=== PATIENT | male | born 1960 ===

== ENCOUNTER 2017-04-06 20:28 | Emergency (ER) | payer BC ==
[2017-04-06 20:46] VITALS: BP 126/79
[2017-04-06] MEDS ORDERED: Lidocaine 1% MPF* 2 ML VIAL INJ ONE (21:20)
--- NOTE | 2017-04-06 21:45 | RAD ---
INDICATION: Head injury. COMPARISON: There are no prior studies available for comparison. TECHNIQUE: Contiguous axial sections of the brain were obtained from the skull base to the vertex without contrast. FINDINGS: The ventricles, cisterns and sulci are within normal limits. No significant focal abnormality or mass effect is seen. There is no evidence for hemorrhage. No significant focal osseous abnormality is seen. The visualized portion of the paranasal sinuses and mastoid air cells appear clear. IMPRESSION: NO EVIDENCE FOR ACUTE INTRACRANIAL ABNORMALITY.
--- NOTE | 2017-04-06 21:47 | RAD ---
INDICATION: Facial trauma. COMPARISON: There are no prior studies available for comparison. TECHNIQUE: Contiguous axial sections of the axial images of the facial bones were obtained and reconstructed in the coronal and sagittal planes. FINDINGS: Soft tissue swelling is noted anterior to the mandibular symphysis. The crespo of the orbits and maxillary sinuses appear intact. The zygomatic arches appear intact. There is no evidence for a fracture of the mandible. The nasal bones appear intact. There is moderate deviation of the nasal septum toward the right side. The pterygoid plates appear intact. The paranasal sinuses appear clear. IMPRESSION: NO EVIDENCE OF FRACTURE.
[2017-04-06] MEDS ORDERED: Tetan/Diph/Pertus SYR(Tdap)* 0.5 ML SYR(BOOSTRIX) use SYR IM ONE (21:59)
--- NOTE | 2017-04-06 22:09 | UC ---
Luis Higuera SooYoung, scribed for Germán Tovar MD on 04/06/17 at 2104 . Truncal Trauma HPI - HPI Summary HPI Summary: A 56 y/o M [place] [facility] [place] a near-syncopal episode [employer]. Pt took a new medication, clonazepam, got drowsy and laid down on the couch. When he got up, he went to the bathroom, felt dizzy, and hit the sink with his body and face. Associated sx: mild dizziness resolved, abrasion to R-side abd. Denies BM changes, facial pain, CP, SOB. Denies LOC but is not entirely sure. - History Of Current Complaint Chief Complaint: UCTrauma Stated Complaint: SOFT TISSUE Time Seen by Provider: 04/06/17 21:00 Hx Obtained From: Patient Onset/Duration: Sudden Onset, Still Present Onset Of Pain: Immediate Severity Initially: Moderate Severity Currently: Mild Pain Intensity: 1 Pain Scale Used: 0-10 Numeric Mechanism Of Injury: Fall From A Standing Position - Allergies/Home Medications Allergies/Adverse Reactions: Allergies Allergy/AdvReac Type Severity Reaction Status Date / Time No Known Allergies Allergy Verified 04/06/17 20:46 Home Medications: Home Medications Escitalopram (NF) [Lexapro 5 mg (NF)] 04/06/17 [History] clonazePAM TAB(*) [Klonopin TAB(*)] PRN 04/06/17 [History] PMH/Surg Hx/FS Hx/Imm Hx Previously Healthy: Yes - Denies PMHx. Neg COPD, CHF. - Surgical History Surgical History: None - Family History Known Family History: Positive: Cardiac Disease - father Negative: Hypertension, Diabetes - Social History Occupation: Employed Full-time Lives: With Family Alcohol Use: None Substance Use Type: None Smoking Status (MU): Never Smoked Tobacco Review of Systems Constitutional: Negative Skin: Other - pos: lac to lip; abrasion to abd Eyes: Negative ENT: Negative Respiratory: Negative Cardiovascular: Negative Gastrointestinal: Negative Genitourinary: Negative Motor: Negative Neurovascular: Negative Musculoskeletal: Other: - pos: rib pain Neurological: Other - pos: dizziness, resolved Psychological: Negative All Other Systems Reviewed And Are Negative: Yes Physical Exam Triage Information Reviewed: Yes Appearance: Well-Appearing, No Pain Distress Vital Signs: Initial Vital Signs Temp 97.9 F 04/06/17 20:42 Pulse 86 04/06/17 20:42 Resp 16 04/06/17 20:42 BP 126/79 04/06/17 20:42 Pulse Ox 98 04/06/17 20:42 Vital Signs Reviewed: Yes Eyes: Positive: Other: - EOMI/LUCI ENT: Positive: Hearing grossly normal Neck: Positive: Supple, Nontender Respiratory: Positive: Chest non-tender, Lungs clear, Normal breath sounds Cardiovascular: Positive: RRR Abdomen Description: Positive: Soft, Other: - mildly tender to palpation Musculoskeletal: Positive: Strength Intact, ROM Intact Neurological Exam: Normal - motor/sensory intact Neurological: Positive: Alert - A&Ox3 Psychological: Positive: Age Appropriate Behavior Skin: Positive: Other - Full thickness lac of lower lip on L side, 1 cm does not cross the nithya border. Abd: R abd abrasion and ecchymosis, no skin break Warm, dry, color reflects adequate perfusion. Procedures - Laceration/Wound Repair 1 Location: mouth - L lower lip Description: Linear Anesthesia: Local, 1.0%, Lido Length, Depth and Shape: 1cm in lip, missing piece of skin at remaining border Laceration/Wound Explored: clean Closure: Single Layer Debridement: minimal Suture Type: Prolene - 6-0 Number of Sutures: 2 Diagnostics - Laboratory Diagnostic Studies Completed/Ordered: MAXILLOFACIAL CT, read by radiologist, IMPRESSION: No evidence of fx. BRAIN CT, read by radiologist, IMPRESSION: No evidence for acute intracranial abnormality. Truncal Trauma Course/Dx - Course Course Of Treatment: Pt medications reviewed this visit. Pre-Hypertensive BP reading (126/79); patient referred to PCP for follow-up. PATIENT STARTED KLONAZEPAM TODAY. HE GOT UP FROM SITTING AND FELT LIGHT HEADED. HE DENIED ANY CHEST PAIN OR PALPITATIONS. HE CONTINUED TO WALK INTO THE BATHROOM WHERE HE REMEMBERS FALLING BUT, NOT STRIKING HIS FACE. BY HX, THE SYNCOPE WAS BRIEF. WE DISCUSSED FURTHER EVALUATION FOR SYNCOPE IN THE EMERGENCY DEPARTMENT; THE PATIENT DECLINED. - Differential Dx/Diagnosis Provider Diagnoses: SYNCOPAL EPISODE, LIP LACERATION, HEAD INJURY Discharge - Discharge Plan Condition: Stable Disposition: HOME Patient Education Materials: Care For Your Stitches (ED), Facial Laceration (ED ), Head Injury (ED), Syncope (ED) Referrals: Helio Camara MD [Primary Care Provider] - (Follow up in 1 day to 4 weeks for further blood pressure evaluation. ) Additional Instructions: Your blood pressure reading today was 126/79, which is PRE-HYPERTENSIVE. Follow- up with your primary care provider within 4 weeks for blood pressure readings and further evaluation. FOLLOW UP WITH YOUR DOCTOR. SUTURES OUT IN 5 DAYS. YOU HAD TOUR TDap IMMUNIZATION IN THE CLINIC TODAY. GO TO THE EMERGENCY DEPARTMENT FOR ANY WORSENING OF YOUR CONDITION; PASSING OUT , WEAKNESS, NUMBNESS, YOU FEEL ILL, SIGNS OF INFECTION OR QUESTIONS OR CONCERNS. The documentation as recorded by the Luis casarez SooYoung accurately reflects the service I personally performed and the decisions made by me, Germán Tovar MD.
== END 2017-04-06 22:14 | disposition home or self-care (01) ==
LOC: UCEAST 20:28
DX: R55 Syncope and collapse (principal); S01.511A Laceration without foreign body of lip, initial encounter; S09.90XA Unspecified injury of head, initial encounter; S30.811A Abrasion of abdominal wall, initial encounter; W18.09XA Striking against other object with subsequent fall, initial encounter; Y93.89 Activity, other specified; Y92.002 Bathroom of unspecified non-institutional (private) residence as the place of occurrence of the external cause; Z23 Encounter for immunization
CPT/HCPCS: 12011; 70450; 70486; 90471; 90715; 99211; G0463

== ENCOUNTER 2017-04-12 11:38 | Emergency (ER) | payer BC ==
[2017-04-12 11:55] VITALS: BP 109/69
--- NOTE | 2017-04-12 12:02 | UC ---
HPI Wound/Suture Re-check - HPI Summary HPI Summary: here for suture removal on left side of lower lip--- - History Of Current Complaint Chief Complaint: UCSkin Stated Complaint: SUTURE REMOVAL Time Seen by Provider: 04/12/17 11:51 Hx Obtained From: Patient Onset/Duration: Sudden Onset, Still Present Surgical Site: left lower lip Severity: Mild Pain Intensity: 0 Pain Scale Used: 0-10 Numeric - Allergies/Home Medications Allergies/Adverse Reactions: Allergies Allergy/AdvReac Type Severity Reaction Status Date / Time No Known Allergies Allergy Verified 04/06/17 20:46 PMH/Surg Hx/FS Hx/Imm Hx Previously Healthy: No Psychological History: Anxiety - Surgical History Surgical History: None - Family History Known Family History: Positive: Cardiac Disease - father Negative: Hypertension, Diabetes - Social History Occupation: Employed Full-time Lives: With Family Alcohol Use: None Substance Use Type: None Smoking Status (MU): Never Smoked Tobacco Review of Systems Constitutional: Negative Skin: Other - healing wound left side of lower lip Eyes: Negative ENT: Negative Respiratory: Negative Cardiovascular: Negative Gastrointestinal: Negative Genitourinary: Negative Motor: Negative Neurovascular: Negative Musculoskeletal: Negative Neurological: Negative Psychological: Negative All Other Systems Reviewed And Are Negative: Yes Physical Exam Triage Information Reviewed: Yes Appearance: Well-Appearing, No Pain Distress, Well-Nourished Vital Signs: Initial Vital Signs Temp 97.6 F 04/12/17 11:53 Pulse 74 04/12/17 11:53 Resp 18 04/12/17 11:53 BP 109/69 04/12/17 11:53 Pulse Ox 100 04/12/17 11:53 Vital Signs Reviewed: Yes Eye Exam: Normal Eyes: Positive: Conjunctiva Clear ENT Exam: Normal ENT: Positive: Normal ENT inspection, Hearing grossly normal, Pharynx normal. Negative: Nasal congestion, Nasal drainage, Trismus, Muffled/hoarse voice Dental Exam: Normal Neck exam: Normal Neck: Positive: Supple, Nontender, No Lymphadenopathy Respiratory Exam: Normal Respiratory: Positive: Chest non-tender, No respiratory distress, No accessory muscle use Cardiovascular Exam: Normal Cardiovascular: Positive: RRR, Pulses Normal, Brisk Capillary Refill Musculoskeletal Exam: Normal Musculoskeletal: Positive: Strength Intact, ROM Intact, No Edema Neurological Exam: Normal Neurological: Positive: Alert, Muscle Tone Normal Psychological Exam: Normal Skin Exam: Normal Skin: Positive: Other - healing wound left lower lip Re-Evaluation - Re-Evaluation First Eval Change: Improved - 2 stitches removed, patient tolerated well, wound well approximated Course/Dx - Course Course Of Treatment: moistuizer to lip, follow with pcp prn - Differential Dx - Laceration/Wound Differential Diagnoses: Cellulitis, Healing Wound, Suture Removal Provider Diagnoses: suture removal healing wound left lower lip Discharge - Discharge Plan Condition: Stable Disposition: HOME Patient Education Materials: Stitches Removal (ED), Facial Laceration (ED) Referrals: Helio Camara MD [Primary Care Provider] - If Needed
== END 2017-04-12 12:30 | disposition home or self-care (01) ==
LOC: UCEAST 11:38
DX: Z48.02 Encounter for removal of sutures (principal); F41.9 Anxiety disorder, unspecified
CPT/HCPCS: 99211; G0463

== ENCOUNTER 2017-10-21 16:43 | Emergency (ER) | payer BC ==
[2017-10-21 16:56] VITALS: BP 121/84
[2017-10-21] MEDS ORDERED: Benzonatate CAP* 100 MG PO ONE (17:09)
[2017-10-21] MEDS ORDERED: Dexamethasone IV* 4 MG/ML 1 ML (4 MG) IM ONE (17:10)
--- NOTE | 2017-10-21 17:27 | UC ---
Respiratory Complaint HPI - HPI Summary HPI Summary: 56 year old male here for malaise, cough and congestion for 4 days. Subjective fever but no n/v/d. Reports sore throat worsened in the past two days. Received the flu vaccination this year. No other complaints. Reports he also noticed eye discharge this morning. - History of Current Complaint Chief Complaint: UCRespiratory Stated Complaint: SORE THROAT,COUGH Time Seen by Provider: 10/21/17 17:00 Onset/Duration: Sudden Onset Timing: Constant Severity Initially: Mild Pain Intensity: 0 Character: Cough: Productive Aggravating Factors: Nothing Alleviating Factors: Nothing Associated Signs And Symptoms: Positive: Fever, Nasal Congestion. Negative: Edema, Hoarseness, Sinus Discomfort - Allergies/Home Medications Allergies/Adverse Reactions: Allergies Allergy/AdvReac Type Severity Reaction Status Date / Time No Known Allergies Allergy Verified 10/21/17 16:47 Home Medications: Home Medications Bupropion XL* [Wellbutrin XL *] 300 mg PO DAILY 10/21/17 [History Confirmed 09/09] Metoprolol Tartrate TAB* [Lopressor TAB*] 50 mg PO DAILY 10/21/17 [History Confirmed 10/21/17] PMH/Surg Hx/FS Hx/Imm Hx Previously Healthy: Yes - Surgical History Surgical History: None - Family History Known Family History: Positive: Cardiac Disease - father Negative: Hypertension, Diabetes - Social History Alcohol Use: None Substance Use Type: None Smoking Status (MU): Never Smoked Tobacco Review of Systems Constitutional: Fever Eyes: Drainage Respiratory: Cough Is Patient Immunocompromised?: No All Other Systems Reviewed And Are Negative: Yes Physical Exam Triage Information Reviewed: Yes Vital Signs: Initial Vital Signs Temp 37.3 C 10/21/17 16:51 Pulse 86 10/21/17 16:51 Resp 16 10/21/17 16:51 BP 121/84 10/21/17 16:51 Pulse Ox 98 10/21/17 16:51 Eyes: Positive: Other: - left eye with discharge No conjuctival injection ENT Exam: Normal ENT: Positive: Pharyngeal erythema, Nasal congestion. Negative: Sinus tenderness Dental Exam: Normal Neck exam: Normal Neck: Positive: 1 Respiratory Exam: Normal Cardiovascular Exam: Normal Abdominal Exam: Normal Musculoskeletal Exam: Normal Neurological Exam: Normal Psychological Exam: Normal Skin Exam: Normal UC Diagnostic Evaluation - Laboratory O2 Sat by Pulse Oximetry: 98 Diagnostic Studies Comment: Flu negative Respiratory Course/Dx - Differential Dx/Diagnosis Differential Diagnosis/HQI/PQRI: Laryngitis, Lower Resp Infection, Sinusitis Provider Diagnoses: URI with viral conjuctivitis. Instructed patient to avoid wearing contacts. Artifical tear as needed Discharge - Discharge Plan Condition: Good Disposition: HOME Prescriptions: Benzonatate CAP* [Tessalon 100 MG CAP*] 100 mg PO TID PRN #20 cap PRN Reason: Cough Magic Mouth Was-JASIEL/MAAL/LIDO* 5 ml SWISH SPIT QID PRN #120 ml PRN Reason: Pain Patient Education Materials: Viral Syndrome (ED) Referrals: Helio Camara MD [Primary Care Provider] -
== END 2017-10-21 17:45 | disposition home or self-care (01) ==
LOC: UCEAST 16:43
DX: J06.9 Acute upper respiratory infection, unspecified (principal); B30.9 Viral conjunctivitis, unspecified
CPT/HCPCS: 87502; 99212; A9270-GY; G0463; J1100